=== PATIENT | male | born 1945 | race Caucasian/White ===

== ENCOUNTER 2018-01-28 10:28 | Emergency (ER) | payer OTHER, BC ==
[~2018-01-28] VITALS: Ht 185.4 cm; Wt 96.8 kg
[~2018-01-28 10:28] MED LIST: ACID CONTROL20 MG PO; AFEDITAB CR30 MG PO; ALDOMET500 MG PO; AMOX TR-K CLV1 EAC1 PO; AMOX TR-K CLV1 EAC3 PO; APRESOLINE100 MG PO; APRESOLINE50 MG PO; ASPIR 8181 M1 PO; ASPIRIN81 M1 PO; AUGMENTIN500 MG PO; AVAPRO150 MG PO; AVAPRO300 MG PO; Apresoline PO; BACTRIM,SEPT1 TABLET PO; BENICAR20 MG PO; BISAC-EVAC10 MG PR; BYSTOLIC10 MG PO; BYSTOLIC5 MG PO; Bystolic PO; CARDURA2 M1 PO; CEFPODOXIME PR200 MG PO; CELEXA10 MG PO; CELLCEPT250 MG PO; CELLCEPT500 MG PO; CEPHALEXIN500 MG PO; CHILDREN'S160 MG/12 PO; CIPRO250 MG PO; CIPRO500 MG PO; CIPROFLOXACIN250 MG PO; CITALOPRAM HBR10 M1 PO; CITALOPRAM HBR10 MG PO; CITALOPRAM HBR20 MG PO; CLARITIN,ALAVAR10 MG PO; CLARITIN-D 21 TABLET PO; CLARITIN10 M3; CLARITIN10 MG PO; COSOPT 0.5200 DROP/1 BOTH EYES; COSOPT EYE DROPS5 ML BOTH EYES; COSOPT EYE DROPS5 ML LEFT EYE; COUMADIN,JANTO7.5 MG PO; COUMADIN,JANTOVE1 MG PO; COUMADIN,JANTOVE5 MG PO; COUMADIN10 MG PO; COUMADIN5 MG PO; COUMADIN7.5 MG PO; COZAAR100 MG PO; CRANBERRY400 M1 PO; CRANBERRY400 MG PO; Cardura PO; Celexa PO; Cipro PO; Cosopt 0.5% Ophth So LEFT EYE; Coumadin Protocol PO; Coumadin,Jantoven PO; DAILY VALUE1 EACH PO; DIOCTO50 MG/5 ML PO; DOCUSATE SODIU100 MG PO; DORZOLAMIDE-TIM10 ML BOTH EYES; DORZOLAMIDE-TIM10 ML LEFT EYE; DOXAZOSIN MESYLA2 MG PO; EDARBI80 MG PO; ENOXAPARIN30 MG/0.3 SC; EPOETIN ALFA; Epogen,Procrit IM; Epogen,Procrit SC; Epogen,Procrit SQ; FEOSOL300 MG/5 M PO; FEOSOL325 MG PO; FERROUS SULFAT325 MG PO; FLONASE16 G1 BOTH NARES; FLORASTOR250 MG PO; FLOVENT DISKUS1 DIS2 IH; FLUTICASONE PRO16 GM BOTH NARES; FUROSEMIDE20 MG PO; Feosol PO; HYDRALAZINE HC100 MG PO; HYDRALAZINE HCL50 MG PO; HYDROCHLOROTHIA25 MG PO; HYDROCODONE-HO473 ML PO; IRBESARTAN300 MG PO; IRON325 M1 PO; IRON325 MG PO; JANTOVEN7.5 MG PO; KEPPRA100 MG/1 M PO; KEPPRA750 MG PO; LABETALOL HCL200 MG PO; LASIX40 MG PO; LATANOPROST2.5 ML BOTH EYES; LATANOPROST2.5 ML LEFT EYE; LEVETIRACETAM500 MG PO; LEVOTHYROXINE25 MCG PO; LEXAPRO5 MG PO; Levaquin PO; MAXIDEX5 ML BOTH EYES; METHYLDOPA500 MG PO; MIRALAX17 GM PO; MORPHINE SULFAT15 M1 PO; MULTIVITAMIN1 EAC1 PO; MULTIVITAMIN1 EAC2 PO; MUPIROCIN22 GM TP; MYCELEX10 MG MM; MYFORTIC180 MG PO; MYFORTIC360 MG PO; Morphine ER; NIFEDICAL XL30 MG PO; NIFEDIPINE ER30 MG PO; NORCO 5/3251 TABLET PO; NORMODYNE,TRAN200 MG PO; NORVASC5 MG PO; PANTOPRAZOLE SO40 MG PO; PROCRIT10000 UNI1 IM; PROCRIT10000 UNI1 IV; PROCRIT20000 UNI2 IJ; PROCRIT20000 UNI2 SC; PROCRIT40000 UNI1 IV; PROCRIT40000 UNI1 SC; PROGRAF0.5 MG PO; PROGRAF1 MG PO; PROTONIX40 MG PO; PROVIGIL200 MG PO; Procardia XL,Adalat PO; Protonix PO; RAPAMUNE1 MG PO; RAPAMUNE2 MG PO; RENVELA0.8 GM PO; ROCEPHIN 2 GM VI2 GM IV; SENNA8.6 MG PO; TAMIFLU75 MG PO; THERAGRAN1 TABLET PO; Theragran PO; VIMPAT50 MG PO; VITAMIN D2000 INTUN PO; VITAMIN D2000 UNI1 PO; VITAMIN D2000 UNIT PO; Vitamin D PO; WARFARIN SODIU7.5 MG PO; WARFARIN SODIUM5 MG PO; XALATAN 0.50 DROP/2. BOTH EYES; XALATAN2.5 ML BOTH EYES; XALATAN2.5 ML LEFT EYE; Xalatan 0.005% Ophth LEFT EYE; ZYRTEC10 M2 PO; ZYRTEC10 M3 PO; celeXA PO
[2018-01-28 13:10] LABS: HEMATOCRIT 29.6 % (38.0-50.0); HEMOGLOBIN 9.6 G/DL (12.5-16.6); MCH 29.6 PG (29.0-34.0); MCHC 32.4 G/DL (30.0-36.0); MCV 91.4 FL (86-99); PLATELET COUNT 178 K/uL (156-360); RBC DIS.WIDTH-CV 14.5 % (11.8-14.6); RBC DIS.WIDTH-SD 48.1 % (39-53); RED BLOOD COUNT 3.24 M/uL (4.00-5.50); WHITE BLOOD COUNT 6.5 K/uL (4.1-10.2)
[2018-01-28 13:25] LABS: CHLORIDE 113 mEq/L (99-109); POTASSIUM 5.2 mEq/L (3.7-5.4); SODIUM 141 mEq/L (136-147)
[2018-01-28 13:27] LABS: GLUCOSE 86 mg/dL (70-99)
[2018-01-28 13:31] LABS: CREATININE 3.6 mg/dL (0.6-1.3); GFR ESTIMATE (CALCULATED) 18 mL/min/ (58.99-99999); UREA NITROGEN (BUN) 60 mg/dL (9-23)
[2018-01-28] MEDS ORDERED: KEFLEX500 MG PO (14:13)
[2018-01-28 14:29] VITALS: BP 139/75
== END 2018-01-28 14:30 | disposition home or self-care (01) ==
LOC: EME 10:28
PROVIDERS: Physician Assistant Medical
DX: L03.116 Cellulitis of left lower limb (principal); Z94.0 Kidney transplant status; Z85.828 Personal history of other malignant neoplasm of skin; Z85.46 Personal history of malignant neoplasm of prostate; Z86.718 Personal history of other venous thrombosis and embolism; I10 Essential (primary) hypertension; Z87.891 Personal history of nicotine dependence
CPT/HCPCS: 73630; 80048; 85027; 93971; 99281; 99283